=== PATIENT | male | born 1975 | race Hispanic/Latino ===

== ENCOUNTER 2018-06-28 14:04 | Emergency (ER) | payer SELFPAY ==
[2018-06-28 15:29] VITALS: BP 136/83
== END 2018-06-28 15:32 | disposition home or self-care (01) ==
LOC: FSED 14:04
DX: M25.571 Pain in right ankle and joints of right foot (principal); M77.32 Calcaneal spur, left foot; M77.31 Calcaneal spur, right foot; M77.9 Enthesopathy, unspecified
CPT/HCPCS: 99283